=== PATIENT | male | born 1990 | race African-American/Black ===

== ENCOUNTER 2016-11-08 12:18 | Emergency (ER) | payer SELFPAY ==
[2016-11-08 13:10] VITALS: BP 156/57
--- NOTE | 2016-11-08 13:31 | RAD ---
ANKLE LEFT 3V History:pain Comparison: None Findings:3 views left ankle are submitted. No acute fracture or dislocation is identified. There is some soft tissue swelling. There is small plantar calcaneal enthesophyte. Impression: 1.No acute osseous abnormality is identified.
--- NOTE | 2016-11-08 13:32 | RAD ---
FOOT LEFT 2V History:pain, left foot pain after playing basketball yesterday Comparison: None Findings:2 views left foot are submitted. No acute fracture or dislocation is identified. There is small plantar calcaneal enthesophyte. There is mild degenerative change talonavicular joint. Impression: 1.No acute osseous abnormality is identified.
[2016-11-08] MEDS ORDERED: TRAM1TAB49 PO (14:08)
--- NOTE | 2016-11-08 14:08 | PHYS DOC ---
Past Medical History Past Medical History: Other Additional Past Medical Histor: SICKLE CELL TRAIT Past Surgical History: No Surgical History Alcohol Use: None Drug Use: None Adult General Chief Complaint Chief Complaint: FOOT INJURY PAIN HPI HPI Patient is a 26 year old male who presents with mild left medial ankle pain and left foot pain that began yesterday while playing basketball, he believes he came down wrong on the leg. Review of Systems Review of Systems Constitutional: Denies fever or chills [] Musculoskeletal: Left medial ankle and foot pain. Integument: Denies rash or skin lesions [] Neurologic: Denies headache, focal weakness or sensory changes [] Endocrine: Denies polyuria or polydipsia [] Allergies Allergies Allergies Coded Allergies Type Severity Reaction Last Updated Verified No Known Drug Allergies 08/01/15 No Physical Exam Physical Exam Constitutional: Well developed, well nourished, no acute distress, non-toxic appearance. [] Skin: Warm, dry, no erythema, no rash. [] Back: No tenderness, no CVA tenderness. [] Extremities: Left ankle and left foot with no obvious deformity, soft tissue swelling noted on the medial and lateral aspect of the left ankle. Full range of motion to the left ankle and foot. No navicular bone pain or pain on the base of the fifth metatarsal of the left foot. +2 left pedal pulse. Cap refill less than 2 seconds the left lower extremity. Sensation intact to the left lower extremity. Neurologic: Alert and oriented X 3, normal motor function, normal sensory function, no focal deficits noted. [] Psychologic: Affect normal, judgement normal, mood normal. [] Current Patient Data Vital Signs Vital Signs Date Time Temp Pulse Resp B/P Pulse Ox O2 Delivery O2 Flow Rate FiO2 11/08/16 13:10 98.0 86 18 100 Room Air 98.0 EKG EKG [] Radiology/Procedures Radiology/Procedures [] Course & Med Decision Making Course & Med Decision Making Pertinent Labs and Imaging studies reviewed. (See chart for details) Patient is in the ED with left foot and left ankle pain that began while playing basketball yesterday. Left foot and ankle x-rays interpreted by radiologist are negative for any acute findings. He probably has left ankle sprain, and left foot sprain. Air cast was applied to the left ankle by the ED RN, neurovascular exam done by me is normal, ice elevation encouraged. Follow- up with the orthopedic doctor in the next 7 days. Dragon Disclaimer Dragon Disclaimer This electronic medical record was generated, in whole or in part, using a voice recognition dictation system. Departure Departure Impression: Primary Impression: Left ankle sprain Additional Impression: Sprain of foot, left Disposition: 01 HOME, SELF-CARE Condition: STABLE Referrals: NO PCP (PCP) KESHIA OVERTON MD See him in one week Patient Instructions: Ankle Sprain, Foot Sprain-Brief Additional Instructions: You were seen for left ankle and left foot sprain. Wear the air cast as needed. Ice and elevate the extremity. Take the prescribed medicines as ordered. Follow- up with the provided orthopedic doctor in a week if pain continues. Scripts Tramadol Hcl/Acetaminophen (Ultracet Tablet)1 Each Tablet1 Tab PO Q6HRS #30 TAB Prov:TONY GRAVES APRN 11/08/16 Problem Qualifiers Primary Impression: Left ankle sprain Encounter type: initial encounter Involved ligament of ankle: unspecified ligament Qualified Code: S93.402A - Sprain of unspecified ligament of left ankle, initial encounter Additional Impression: Sprain of foot, left Encounter type: initial encounter Qualified Code: S93.602A - Unspecified sprain of left foot, initial encounter TONY GRAVES APRN Nov 08, 2016 14:08
[2016-11-08] MEDS ORDERED: HYDROCODONE/APAP 5/325MG TABLET. PO ONE (14:45)
== END 2016-11-08 14:40 | disposition home or self-care (01) ==
LOC: ER 12:18
DX: S93.402A Sprain of unspecified ligament of left ankle, initial encounter (principal); S93.602A Unspecified sprain of left foot, initial encounter; X58.XXXA Exposure to other specified factors, initial encounter; Y93.67 Activity, basketball; Y92.89 Other specified places as the place of occurrence of the external cause; Y99.8 Other external cause status
CPT/HCPCS: 29515; 73610; 73620; 99284-25